=== PATIENT | female | born 1990 | race Caucasian/White ===

== ENCOUNTER 2016-07-11 06:08 | Inpatient (IN) | payer BC ==
--- OUTSIDE RECORDS SUMMARY | 2016-07-11 06:12 | XMS REPORT | Continuity of Care Document ---
:1990 Author Organization [facility] ([facility]) Address [address] [place] [address] Phone [phone] Care Team Providers Name Role Phone Hernando Cleaning Primary Care Provider [phone] Source Comments This disclosure is being made pursuant to the Care Everywhere program, applicable federal and state laws, and may not contain all informaitonavailable regarding this patient.[facility] ([facility]) Active Allergies and Adverse Reactions Allergen Noted Date Severity Reactions Comments Latex 02/07/2016 Rash Current Medications Not on file Active Problems Problem Noted Date 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 Renal cyst, left Hemorrhoids GERD (gastroesophageal reflux disease) Insomnia Asthma Murmur TMJ arthralgia Migraine headache Overview: 3-4 times per week Flat feet Chronic joint pain Joint laxity Mayur-Danlos syndrome Social History Tobacco Use Types Packs/Day Years Used Date Never Assessed Last Filed Vital Signs Vital Sign Reading Time Taken Blood Pressure 112/64 02/07/2016 11:57 AM CDT Pulse 105 02/07/2016 11:57 AM CDT Temperature 37 C (98.6 F) 02/07/2016 11:57 AM CDT Respiratory Rate - - Height 1.552 m (5' 1.1") 02/07/2016 11:57 AM CDT Weight 83.3 kg (183 lb 10.3 oz) 02/07/2016 11:57 AM CDT Body Mass Index 34.58 02/07/2016 11:57 AM CDT Oxygen Saturation - - Plan of Care Health Maintenance Due Date Last Done Comments Hepatitis B Vaccine (1 of 3 - Primary Series) 1990 HPV Vaccine (1 of 3 - Female/Unknown 3 Dose Series) 09/30/2003 Tdap Vaccine 09/30/2003 Cervical Cancer Screening 2010 Lipid Disorder Screening 2010 MMR Vaccine 2010 Td Vaccine 2010 Varicella Vaccine (1 of 2 - Adult - No Evidence of 2010 Immunity) Pneumococcal Vaccine (1 of 1 - PPSV23) 09/30/2011 Influenza Vaccine: Seasonal (#1) 11/07/2015 Results from Last 3 Months Not on file
[2016-07-11] MEDS ORDERED: ACETAMINOPHEN 500 MG TABLET PO PRN (06:17)
[2016-07-11] MEDS ORDERED: CALCIUM CARBONATE 500 MG TAB.CHEW PO PRN (06:17)
[2016-07-11] MEDS ORDERED: ALBUTEROL SULFATE 2.5 MG/0.5 ML VIAL.NEB IH PRN ×2 (06:17→16:49)
[2016-07-11] MEDS ORDERED: ALBUTEROL SULFATE 60 PUFF INHALER IH PRN (06:19)
[2016-07-11] MEDS ORDERED: LIDOCAINE HCL 50 ML VIAL PERI PRN (06:24)
[2016-07-11] MEDS ORDERED: OXYTOCIN/DEXTROSE 5%-WATER 30 UNITS/500 ML BAG IV ONE ×2 (06:24→16:48)
[2016-07-11] MEDS ORDERED: ONDANSETRON HCL/PF 2 MG/ML VIAL IV PRN (06:24)
[2016-07-11] MEDS ORDERED: PENICILLIN G POTASSIUM 5 MILLIONUNT in DEXTROSE 5 % IN WATER 100 ML IV ONE ×2 (06:30)
[2016-07-11] MEDS: DEXTROSE 5%-LACTATED RINGERS 1,000 ML IV PRN ×3 (06:37→15:54)
[2016-07-11] MEDS ORDERED: BUPIVACAINE HCL/0.9 % NACL/PF 250 ML EP PRN (07:27)
[2016-07-11] MEDS ORDERED: fentaNYL CITRATE/PF 50 MCG/ML AMPUL IT SCH (07:30)
--- NOTE | 2016-07-11 07:32 | OR ---
Anesthesia Pre Procedure Eval Date of Service: 07/11/16 Pre Procedure Evaluation: Last Vital Signs Temp 36.6 C 12/29/15 12:01 Pulse Resp BP 120/68 12/29/15 12:01 Pulse Ox Anesthesia Pre Procedure Evaluation Heart Rate:86 Blood Pressure:136/99 Termperature:36.5C Respiratory Rate:16 SaO2:99 DATE: 07/11/2016 TIME: 7:30 INDICATIONS: Active labor labor pain PAST MEDICAL HISTORY: Multipara patient in active labor requesting labor analgesia EXAM: Heart regular; lungs clear ASSESSMENT OF MEDICAL STATUS: Appropriate candidate for labor analgesia PLANNED PROCEDURE: Combination spinal epidural for labor analgesia Home Medications: HOME MEDICATIONS Acetaminophen [Tylenol] 1,000 mg PO Q6H PRN 06/28/16 [Last Taken 07/10/16] Calcium Carbonate [Tums] 500 mg PO TID PRN 06/28/16 [Last Taken 07/11/16] Vit#96/Ferrous Fum/FA [ S] 1 tab PO DAILY 06/28/16 [Last Taken Unknown] Albuterol Sulfate [Ventolin Hfa] 18 gm IH PRN PRN 07/11/16 [Last Taken 07/10/16]
--- NOTE | 2016-07-11 07:53 | OR ---
Anesthesia Procedure Note - Anesthesia Procedure Note Date of Service: 07/11/16 Narrative: Vital Signs - Last Taken Temp 36.6 C 12/29/15 12:01 Pulse Resp BP 120/68 12/29/15 12:01 Pulse Ox 07/11/16 07:51 ANESTHESIA PROCEDURE NOTE Date of Procedure: 07/11/2016 Time of procedure: 11 04. Performed by: LINDA Thrasher CRNA, MSN Tape Recorder Mechanic: Aretha Hess RN. Preprocedure diagnosis: Active labor, labor pain. Post procedure diagnosis: Same. Procedure: Labor Epidural Placement L3 4. Indications: Active labor, labor pain. Findings: See below. Details of the procedure: The patient was placed on the side of the bed in sitting position. The patient was prepped with DuraPrep and draped in a sterile fashion. Lidocaine 1% was infiltrated to the skin and subcutaneous tissues at the level of the L3 4 interspace. The epidural space was identified using a 18-gauge Tuohy needle with [id number] technique. Fentanyl 20 g was given intrathecally the intrathecal needle was then removed and the epidural catheter was threaded approximately 4 cm, the epidural needle was then removed, and after careful aspiration 3 mL of 1.5% lidocaine with 1-200,000 epinephrine was injected without change in maternal heart rate or sensorium. The catheter was then taped in place. EBL: Minimal. Fluids: N/A. Specimen: N/A. Post procedure condition: The patient tolerated the procedure well with good relief. No complications were noted. Thank you for this consultation. Pablo Phan CRNA, MARKET RISK ANALYST, MSN
[2016-07-11] MEDS ORDERED: RINGERS SOLUTION,LACTATED 1,000 ML IV ONE (08:00)
[2016-07-11] MEDS ORDERED: PRENATAL VIT#96/FERROUS FUM/FA 1 TAB TABLET PO SCH (09:00)
[2016-07-11] MEDS: PENICILLIN G POTASSIUM 2.5 MILLIONUNT in DEXTROSE 5 % IN WATER 100 ML IV SCH ×4 (09:53→13:52)
--- NOTE | 2016-07-11 14:11 | PN ---
Progess Note - Interim Narrative: 07/11/16 14:08 Patient comfortable with epidural Vital signs stable. Pitocin at 18 mu/min. Status post 2 doses of penicillin for GBS prophylaxis. FHT:150 baseline, reassuring Contractions q 2-3 min Cervix: And 5/60/-3, AROM-clear at 1330 Impression: Intrauterine at 39 6/7 weeks elective induction of labor for term with favorable cervix Plan: Continue present plan 07/11/16 14:10
[2016-07-11] MEDS ORDERED: ACETAMINOPHEN 500 MG TABLET PO ONE (14:57)
[2016-07-11] MEDS ORDERED: oxyCODONE HCL/ACETAMINOPHEN 1 TAB TABLET PO PRN (16:48)
[2016-07-11] MEDS ORDERED: HYDROCORTISONE 30 APPL TUBE TP PRN (16:48)
[2016-07-11] MEDS ORDERED: SENNOSIDES 8.6 MG TABLET PO PRN (16:48)
[2016-07-11] MEDS ORDERED: BISACODYL 10 MG SUPP.RECT RC PRN (16:48)
[2016-07-11] MEDS ORDERED: BENZOCAINE/MENTHOL 81 SPRAY CAN TP PRN (16:48)
[2016-07-11] MEDS ORDERED: GLYCERIN/WITCH HAZEL LEAF 40 APPL BOX TP PRN (16:48)
--- NOTE | 2016-07-11 16:56 | OR ---
Operative Report - Dictated Report Narrative: Spontaneous vaginal delivery of viable male at 1632 on 07/11/2016 in YOLANDA position with Apgars 8 and 9, weighing 3500 g. Nuchal cord 1-tight, reduced on perineum. Cord clamping delayed approximately 1 minute Placenta delivered complete, intact, with three vessel cord Estimated blood loss: less than 50 ml Lacerations: None History for MU Definition: * The number of deliveries resulting in a live the patient experienced prior to current hospitalization * The previous delivery of live twins or any live multiple gestation is considered one live event. *If primagravida or nulliparous is documented select zero for the number of previous live births. Live Events: 1
[2016-07-11] MEDS: IBUPROFEN 800 MG TABLET PO PRN (18:50)
[2016-07-11] MEDS: DOCUSATE SODIUM 100 MG CAPSULE PO SCH (20:30)
[2016-07-11] MEDS: oxyCODONE HCL/ACETAMINOPHEN 1 TAB TABLET PO PRN (21:36)
[2016-07-12] MEDS: oxyCODONE HCL/ACETAMINOPHEN 1 TAB TABLET PO PRN ×6 (01:14→21:29)
[2016-07-12] MEDS: IBUPROFEN 800 MG TABLET PO PRN ×3 (03:56→18:12)
--- NOTE | 2016-07-12 08:48 | PN ---
Subjective - Date and Time Seen Date: 07/12/16 Time: 08:47 Objective - Vitals Vitals: Last Vital Signs Temp 36.9 C 07/12/16 06:55 Pulse 80 07/12/16 06:55 Resp 16 07/12/16 06:55 BP 117/63 07/12/16 06:55 Pulse Ox 98 07/12/16 06:55 Patient denies complaints. Lochia wnl Abdomen - soft, nontender Uterus - firm, at umbilicus - 1 No calf tenderness Impression: day #1 - s/p spontaneous vaginal delivery. Plan: Continue routine care Cauti Physician Documentation - Urinary Catheter Management Uretheral ([place]) Date of Insertion: 07/11/16 Time of Insertion: 09:10 Date of Removal: 07/11/16 Time of Removal: 16:25
[2016-07-12] MEDS: DOCUSATE SODIUM 100 MG CAPSULE PO SCH ×2 (10:02→21:27)
[2016-07-13] MEDS: IBUPROFEN 800 MG TABLET PO PRN (06:55)
--- NOTE | 2016-07-13 08:26 | PN ---
Subjective - Date and Time Seen Date: 07/13/16 Time: 08:25 Objective - Vitals Vitals: Last Vital Signs Temp 36.4 C L 07/12/16 19:55 Pulse 68 07/13/16 02:14 Resp 16 07/13/16 02:14 BP 121/63 07/13/16 02:14 Pulse Ox 99 07/13/16 02:14 Patient denies complaints. Lochia wnl Abdomen - soft, nontender Uterus - firm, at umbilicus - 2 No calf tenderness Impression: day #2 - s/p spontaneous vaginal delivery. Ehler Danlos syndrome-stable. Asthma-stable. Plan: Routine discharge instructions Cauti Physician Documentation - Urinary Catheter Management Uretheral ([place]) Date of Insertion: 07/11/16 Time of Insertion: 09:10 Date of Removal: 07/11/16 Time of Removal: 16:25
[2016-07-13] MEDS ORDERED: NALOXONE HCL 1 MG/1 ML SYRG IV PRN (09:02)
[2016-07-13] MEDS ORDERED: ONDANSETRON HCL/PF 2 MG/ML VIAL IV PRN (09:02)
[2016-07-13] MEDS ORDERED: BUPIVACAINE HCL/0.9 % NACL/PF 250 ML EP PRN (09:02)
[2016-07-13] MEDS ORDERED: BUPIVACAINE HCL/PF 30 ML VIAL EP ONE (09:02)
[2016-07-13 10:07] VITALS: BP 132/76
== END 2016-07-13 12:45 | disposition home or self-care (01) | DRG 775 ==
LOC: OB 06:08
PROVIDERS: ADMIT Obstetrics & Gynecology; ATTEND Obstetrics & Gynecology
PROC: 10E0XZZ Delivery of Products of Conception, External Approach (ICD-10-PCS; principal; 2016-07-11)
PROC: 10907ZC Drainage of Amniotic Fluid, Therapeutic from Products of Conception, Via Natural or Artificial Opening (ICD-10-PCS; 2016-07-11)
PROC: 4A1HXCZ Monitoring of Products of Conception, Cardiac Rate, External Approach (ICD-10-PCS; 2016-07-11)
PROC: 3E0S3CZ (ICD-10-PCS; 2016-07-11)
DX: O69.1XX0 Labor and delivery complicated by cord around neck, with compression, not applicable or unspecified (principal); Q79.6 Ehlers-Danlos syndromes; O99.824 Streptococcus B carrier state complicating childbirth; Z3A.40 40 weeks gestation of pregnancy; Z37.0 Single live birth

== ENCOUNTER 2016-11-11 23:49 | Emergency (ER) | payer BC ==
[2016-11-12 00:26] LABS: Hematocrit 36.8 % (37.0-47.0); Hemoglobin 12.7 gm/dL (12.5-16.0); Mean Cell Volume 77.1 fl (78-100); Mean Corpuscular Hemoglobin 26.6 pg (27-31); Mean Corpuscular Hgb Conc 34.5 g/dl (32-36); Mean Platelet Volume 9.8 fl (6.0-9.5); Neutrophil # 2.9 K/mm3 (1.3-6.0); Neutrophil % 65.3 % (42-75.0); Platelet Count 196 K/mm3 (150-450); Red Blood Count 4.77 M/mm3 (4.2-5.4); Red Cell Distribution Width 14.2 % (11.5-14.0); White Blood Count 4.4 K/mm3 (4.0-10.5)
[2016-11-12 00:31] LABS: Urine Bilirubin Negative (NEGATIVE); Urine Ketone Negative (NEGATIVE); Urine Nitrite Negative (NEGATIVE); Urine Protein Negative (NEGATIVE); Urine Specific Gravity >=1.030 SP.GR. (1.005-1.010); Urine Urobilinogen Normal (NORMAL)
[2016-11-12 00:38] LABS: Urine Appearance Clear; Urine Bacteria 2+; Urine Blood 5 /ul (NEGATIVE); Urine Color Dark Yellow; Urine Mucus Few - 1+; Urine RBC 0-5 /hpf (0-5); Urine WBC 0-5 /hpf (0-5)
[2016-11-12 00:40] LABS: Albumin * 3.8 gm/dl (3.4-5.0); Anion Gap 13.8 mmol/L (6.8-13.8); Bilirubin, Total 0.5 mg/dL (0.0-1.1); Ca. Corrected For Albumin 8.5 mg/dL (8.4-10.2); Calcium * 8.7 mg/dL (7.9-10.9); Carbon Dioxide 26.5 mmol/L (24-32.6); Potassium 3.3 mmol/L (3.4-4.6); Total Protein 7.2 gm/dL (6.2-8.2)
--- NOTE | 2016-11-12 01:35 | ERNOTE ---
Abdominal HPI - General Chief Complaint: Abdominal Pain Time Seen by Provider: 11/12/16 01:23 Source: patient Exam Limitations: no limitations - Immun/Allergies/Home Medications Immunizatons: IMMUNIZATION HX Immunizations Up to Date Yes Allergies/Adverse Reactions: Allergies naproxen sodium [From Aleve] Allergy (Severe, Verified 11/12/16 00:05) Swelling of Tongue latex Allergy (Intermediate, Verified 11/12/16 00:05) Home Medications: HOME MEDICATIONS Acetaminophen [Tylenol] 1,000 mg PO Q6H PRN 06/28/16 [Last Taken 07/10/16] Calcium Carbonate [Tums] 500 mg PO TID PRN 06/28/16 [Last Taken 07/11/16] Vit#96/Ferrous Fum/FA [ S] 1 tab PO DAILY 06/28/16 [Last Taken Unknown] Albuterol Sulfate [Ventolin Hfa] 18 gm IH PRN PRN 07/11/16 [Last Taken 07/10/16] Ibuprofen [Motrin] 200 - 800 mg PO Q6H PRN #100 tab 07/13/16 [Last Taken Unknown ] - History of Present Illness Narrative: Pt had onset of RUQ abdominal pain this am when she woke up. Waxing and waning with constant ache. Has radiation to her back. Timing: getting worse Quality: moderate, severe, burning, cramping Activities at Onset: none Associated Symptoms: Present: diaphoresis, nausea Review of Systems - Review of Systems Constitutional: Absent: recent illness EYE: Present: no symptoms reported ENT: Present: no symptoms reported Respiratory: Present: other - no pain with deep breath. Absent: shortness of breath, cough Cardiology: Absent: chest pain Gastrointestinal/Abdominal: Present: See HPI Genitourinary: Present: other - difficulty urinating Musculoskeletal: Present: back pain Skin: Present: no symptoms reported Neurological: Present: no symptoms reported Endocrine: Present: no symptoms reported Hematologic/Lymphatic: Present: no symptoms reported Psych: Present: no symptoms reported - Patient's Past Medical History Patient History - Medical: Anemia, ADHD Patient History - Cardiac/Respiratory: Asthma Patient History - Cancer: No Hx of Cancer Patient History - Surgical Procedures: T & A Patient History - Other: None LMP (females 10-50): other - Family History Mother Family History - Medical: Other Family History - Cardiac/Respiratory: Hyperlipidemia - Social History Living Situations: home Abuse History: No History of abuse Psych History: Hx of Anxiety Smoking Status: Never smoker Alcohol Use: none Drug Use: none - Immunizations Immunizations Up to Date: Yes Physical Exam - Physical Exam General Appearance: Present: wd/wn, alert, no apparent distress Head Exam: Present: normal inspection, no evidence of injury Eye Exam: Normal inspection: bilateral Neck: Present: normal inspection, full range of motion Respiratory: Present: no respiratory distress, no accessory muscle use Gastrointestinal/Abdominal: Present: normal bowel sounds, tenderness - RUQ which causes some discomfort in the LUQ when pushing in the RUQ.. Absent: guarding, rebound Back Exam: Present: normal inspection, no CVA tenderness Extremity Exam: Present: normal inspection, non-tender, no edema Neurological Exam: Present: alert, oriented, normal mood/affect Skin Exam: Present: normal color, warm/dry Lymphatic Exam: Present: no adenopathy ED Progress - Results and Orders Patient's Lab Results:: I have reviewed the patient's lab results. Results and Orders: Laboratory Tests 11/12/16 11/12/16 11/12/16 00:24 00:24 00:24 WBC 4.4 Hgb 12.7 Hct 36.8 L Plt Count 196 Sodium 141 Potassium 3.3 L Chloride 104 BUN 9 Creatinine 0.90 Random Glucose 110 Calcium 8.7 Total Bilirubin 0.5 AST 20 ALT 57 Alkaline Phosphatase 124 Total Protein 7.2 Albumin 3.8 Amylase 25 Lipase 73 Serum HCG, Qual Urine Color Dark yellow Urine Appearance Clear Urine pH 6.0 Ur Specific [place] >=1.030 Urine Protein Negative Urine Glucose (UA) Negative Urine Ketones Negative Urine Blood 5 H Urine Nitrate Negative Urine Bilirubin Negative Urine Urobilinogen Normal Ur Leukocyte Esterase Negative Urine RBC 0-5 Urine WBC 0-5 Ur Epithelial Cells 10-25 H Urine Bacteria 2+ H Urine Mucus Few - 1+ H Urine Culture Comments No culture indicated 11/12/16 00:24 WBC Hgb Hct Plt Count Sodium Potassium Chloride BUN Creatinine Random Glucose Calcium Total Bilirubin AST ALT Alkaline Phosphatase Total Protein Albumin Amylase Lipase Serum HCG, Qual Negative Urine Color Urine Appearance Urine pH Ur Specific [place] Urine Protein Urine Glucose (UA) Urine Ketones Urine Blood Urine Nitrate Urine Bilirubin Urine Urobilinogen Ur Leukocyte Esterase Urine RBC Urine WBC Ur Epithelial Cells Urine Bacteria Urine Mucus Urine Culture Comments - Vital Signs Patient's Vital Signs:: I have reviewed the patient's vital signs. Vital Signs: Vital Signs 11/11/16 23:59 Temperature 37.6 C H Pulse Rate 95 Respiratory 20 Rate Blood Pressure 100/68 O2 Sat by Pulse 98 Oximetry - X-Ray X-Ray #1 X-Ray: abdomen Interpretation: Interp. by me X-ray Comments: Retained stool in the upper ascending, transverse and descending colon. No dilation or evidence of obstruction. No mass - Progress/Reassessment Chief Complaint: Abdominal Pain Progress:: Unchanged Progress Note-Subjective: 11/12/16 02:35 Discussed constipation with the patient and family. discussed hematuria and pt states that she has had a CT scan that showed one kidney was very cystic. I suggested further discussion with her PCP and possibly further workup or at least continued monitoring of her polycystic kidney. Pt and family expressed understanding. Departure - Departure Clinical Impression: Constipation Qualifiers: Constipation type: slow transit constipation Qualified Code(s): K59.01 - Slow transit constipation Hematuria Qualifiers: Hematuria type: asymptomatic microscopic Qualified Code(s): R31.21 - Asymptomatic microscopic hematuria Disposition: Home self-care Condition: Good Instructions: Constipation, Adult, [id number] Additional Instructions: discuss further work up for the blood in your urine with your primary care doctor. Take over the counter laxative tonight and then increase your fiber and water intake Referrals: Mohamud Can MD [Primary Care Provider] -
--- OUTSIDE RECORDS SUMMARY | 2016-11-12 01:47 | XMS REPORT | Summary of Care ---
:1990 Author Organization [facility] Address [address] [place] [address] Care Team Providers Name Role Phone Physician, Primary Care Primary Care Physician Unavailable Encounter Date(s): 09/06/16 - 09/06/16 [facility] [address], [address] [place], [place] [address] Discharge Diagnosis: Low back pain Discharge Diagnosis: Neck pain Discharge Disposition: 01 Discharged to Home or Self Care Attending Physician: Pete Sheht MD Referring Physician: Nikos Azevedo MD Vital Signs Most recent to oldest [Reference Range]: 1 Peripheral Pulse Rate [60-100 bpm] 83 bpm (09/06/16 11:21 AM) Blood Pressure [90-130/60-90 mmHg] 129/82mmHg (09/06/16 11:21 AM) Mean Arterial Pressure, Cuff 98 mmHg (09/06/16 11:21 AM) Most recent to oldest [Reference Range]: 1 Height/Length Measured 157 cm (09/06/16 11:21 AM) Weight Dosing 82.90 kg1 (09/06/16 11:29 AM) Weight Measured 82.9 kg (09/06/16 11:21 AM) BSA Measured 1.84 m2 (09/06/16 11:21 AM) Body Mass Index Measured 33.63 kg/m2 (09/06/16 11:21 AM) 1Result Comment: This result was because the dosing weight was either not entered or it is>30 days old. This result is based off: Weight Measured September 06, 2016 11:21:00 CDT by Elodia Belle, Oil Tank Car Cleaner Problem List Condition Effective Dates Status Health Status Informant ADD - Attention deficit Active disorder(Confirmed) Numbness and tingling sensation of Active skin(Confirmed) Allergies, Adverse Reactions, Alerts Substance Reaction Severity Status Aleve Active Latex Active Medications busPIRone 15 mg oral tablet 1 tab(s), Oral, BID, Start with 2/3 tablet (10mg) BID x 1 week, # 60 tab(s), 2 Refill(s), Start Date: 03/12/14 14:24:00 BOBBIN SORTER, Pharmacy: [id number] Special Instructions: Start with 2/3 tablet (10mg) BID x 1 week Start Date: 03/12/14 Stop Date: 07/09/14 Status: Discontinueddocusate sodium 0 Refill(s) Start Date: 01/18/14 Stop Date: 01/09/16 Status: CompletedPrenatal Multivitamins Oral, Daily, 0 Refill(s) Start Date: 01/18/14 Status: OrderedTylenol Oral, 0 Refill(s) Start Date: 01/18/14 Status: Ordered Results No data available for this section Immunizations Vaccine Date Refusal Reason influenza virus vaccine, inactivated1 01/18/14 1Result Comment: Pt tolerated well. Procedures Procedure Date Related Diagnosis Body Site Tonsillectomy and adenoidectomy 12/17/12 Oral procedure Procedure1 1Lateral bilateral arthroscropy and patellar release Social History No data available for this section Assessment and Plan No data available for this section
--- OUTSIDE RECORDS SUMMARY | 2016-11-12 01:47 | XMS REPORT | Summary of Care ---
:1990 Author Organization [facility] Care Team Providers Name Role Phone Physician, Primary Care Primary Care Physician Unavailable Encounter Date(s): 09/14/16 - 09/14/16 [id number] [place], [place] [address] Discharge Disposition: Discharged to Home or Self Care Attending Physician: Nikos Azevedo MD Admitting Physician: Nikos Azevedo MD Vital Signs No data available for this section Problem List Condition Effective Dates Status Health Status Informant ADD - Attention deficit Active disorder(Confirmed) Numbness and tingling sensation of Active skin(Confirmed) Allergies, Adverse Reactions, Alerts Substance Reaction Severity Status Aleve Active Latex Active Medications busPIRone 15 mg oral tablet 1 tab(s), Oral, BID, Start with 2/3 tablet (10mg) BID x 1 week, # 60 tab(s), 2 Refill(s), Start Date: 03/12/14 14:24:00 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
--- OUTSIDE RECORDS SUMMARY | 2016-11-12 01:48 | XMS REPORT | Summary of Care ---
:1990 Author Organization [facility] Address [address] [place] [address] Care Team Providers Name Role Phone Physician, Primary Care Primary Care Physician Unavailable Encounter Date(s): 09/26/16 - 09/26/16 [facility] [address], [address] [place], [place] [address] Discharge Diagnosis: Bilateral plantar fasciitis Discharge Disposition: 01 Discharged to Home or Self Care Attending Physician: Suzan Brenner DPM Referring Physician: Suzan Brenner DPM Vital Signs Most recent to oldest [Reference Range]: 1 Peripheral Pulse Rate [60-100 bpm] 105 bpm *HI* (09/26/16 9:13 AM) Blood Pressure [90-130/60-90 mmHg] 99/67mmHg (09/26/16 9:13 AM) Mean Arterial Pressure, Cuff 78 mmHg (09/26/16 9:13 AM) Most recent to oldest [Reference Range]: 1 Height/Length Measured 157 cm (09/26/16 9:13 AM) Weight Dosing 83.91 kg1 (09/26/16 9:25 AM) Weight Measured 83.91 kg (09/26/16 9:13 AM) BSA Measured 1.85 m2 (09/26/16 9:13 AM) Body Mass Index Measured 34.04 kg/m2 (09/26/16 9:13 AM) 1Result Comment: This result was because the dosing weight was either not entered or it is>30 days old. 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, Pharmacy: [facility] Special Instructions: Start with 2/3 tablet (10mg) BID x 1 week Start Date: 03/12/14 Stop Date: 07/09/14 Status: Discontinueddiclofenac sodium 75 mg oral delayed release tablet 1 tab(s), Oral, BID, # 60 tab(s), 0 Refill(s), Start Date: 09/21/16 13:25:00 CDT , Pharmacy: [facility] [place] [id number] Start Date: 09/21/16 Status: Ordereddocusate sodium 0 Refill(s) Start Date: 01/18/14 Stop Date: 01/09/16 Status: Completedmeloxicam 15 mg oral tablet 1 tab(s), Oral, Daily, # 30 tab(s), 1 Refill(s), Start Date: 09/11/16 8:27:00 CDT, Pharmacy: [facility] Start Date: 09/11/16 Stop Date: 09/26/16 Status: DiscontinuedPrenatal Multivitamins 1 tab, Oral, Daily, 0 Refill(s), Start Date: 01/18/14 13:02:00 CDT Start Date: 01/18/14 Status: OrderedTylenol 325 mg, Oral, Daily, 0 Refill(s), Start Date: 01/18/14 13:02:00 CDT Start Date: 01/18/14 Status: Ordered Results No [...]
--- OUTSIDE RECORDS SUMMARY | 2016-11-12 01:48 | XMS REPORT | Summary of Care ---
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: [facility] Special Instructions: Start with 2/3 tablet (10mg) BID x 1 week Start Date: 03/12/14 Stop Date: 07/09/14 Status: Discontinueddiclofenac sodium 75 mg oral delayed release tablet 1 tab(s), Oral, BID, # 60 tab(s), 0 Refill(s), Start Date: 09/21/16 13:25:00 CDT , Pharmacy: [facility] Start Date: 09/21/16 Status: Ordereddocusate sodium 0 Refill(s) Start Date: 01/18/14 Stop Date: 01/09/16 Status: Completedmeloxicam 15 mg oral tablet 1 tab(s), Oral, Daily, # 30 tab(s), 1 Refill(s), Start Date: 09/11/16 8:27:00 CDT, Pharmacy: [id number] Start Date: 09/11/16 Stop Date: 09/26/16 Status: [...]
[2016-11-12 02:52] VITALS: BP 124/74
== END 2016-11-12 02:51 | disposition home or self-care (01) ==
LOC: ER 23:49
DX: K59.01 Slow transit constipation (principal); R31.21 Asymptomatic microscopic hematuria; D64.9 Anemia, unspecified; F90.9 Attention-deficit hyperactivity disorder, unspecified type

== ENCOUNTER 2018-08-15 10:29 | Inpatient (IN) ==
[2018-08-15] MEDS ORDERED: PENICILLIN G POTASSIUM 5 MILLIONUNT in DEXTROSE 5 % IN WATER 100 ML IV ONE ×2 (14:17)
[2018-08-15] MEDS ORDERED: MISOPROSTOL 100 MCG TABLET VG PRN (14:17)
[2018-08-15] MEDS ORDERED: OXYTOCIN/DEXTROSE 5%-WATER 30 UNITS/500 ML BAG IV ONE (14:17)
[2018-08-15] MEDS ORDERED: DEXTROSE 5%-LACTATED RINGERS 1,000 ML IV PRN (14:17)
[2018-08-15] MEDS ORDERED: ONDANSETRON 4 MG TAB.RAPDIS PO PRN (14:17)
[2018-08-15] MEDS ORDERED: RINGER'S SOLUTION,LACTATED 1,000 ML IV ONE (14:17)
[2018-08-15] MEDS ORDERED: BUPIVACAINE HCL/0.9 % NACL/PF 250 ML EP PRN (14:57)
[2018-08-15] MEDS ORDERED: NALOXONE HCL 1 MG/1 ML SYRG IV PRN (14:57)
[2018-08-15] MEDS ORDERED: ONDANSETRON HCL/PF 2 MG/ML VIAL IV PRN (14:57)
[2018-08-15] MEDS ORDERED: fentaNYL CITRATE/PF 50 MCG/ML AMPUL IT SCH (15:00)
[2018-08-15] MEDS ORDERED: LIDOCAINE HCL 50 ML VIAL ONE (15:56)
--- NOTE | 2018-08-15 16:14 | ANES ---
Anesthesia Pre Procedure Eval Vitals/Labs: Last Vital Signs Temp 37.5 C 08/15/18 14:40 Pulse 104 H 08/15/18 14:40 Resp 16 08/15/18 14:40 BP 115/60 08/15/18 14:40 Pulse Ox 99 08/15/18 14:40 HOME MEDICATIONS [id number]/Iron Fumarate/FA/Dss [ 19 Tablet] 1 ea PO DAILY 01/06/18 [Last Taken 08/02/18 09:00] acetaminophen 500 mg tablet 500 mg PO PRN PRN 01/07/18 [Last Taken Unknown] breast pump See Dose Instructions .ROUTE .MEDSUPPLY #1 ea 02/07/18 [Last Taken Unknown] Allergies/Adverse Reactions: Allergies Allergy/AdvReac Type Severity Reaction Status Date / Time naproxen sodium [From Aleve] Allergy Severe Swelling Verified 08/15/18 14:18 of Tongue, Hives latex Allergy Intermediate Hives Verified 08/15/18 14:18 - Planned Procedure Planned Procedure: ELECTIVE INDUCTION Medication List Reviewed:: Yes Allergies Verified: Yes Medical History (Updated 05/27/18 @ 17:01 by Andie Rock RN) Hx of migraines (Chronic) no meds Asthma (Chronic) INH PRN Anxiety (Chronic) no meds Mayur-Danlos syndrome (Chronic) Normal transthoracic ECHO in 2015 ADD (attention deficit disorder) Onset Date: ~2009 Tx'd w/Haim. Stopped medication with + UPT 2013. Allergy to Chestnuts Tongue itches & yoo; hives Allergy to avocado Tongue itches and yoo; hives Allergy to banana Tongue itches & yoo; hives Anxiety Onset Date: ~03/2014-Induced by progesterone per psychiatrist & 05/12/14. Asthma Onset Date: ~2007 Exercise induced. Currently has an inhaler as of 04/22/14. No hospitalizations. Body piercing Mayur-Danlos syndrome Mastodynia Onset Date: 01/13/13 Migraine Mild intermittent asthma without complication Onset Date: 12/01/15 Muscle spasm with numbness and tingling nowhere generalized Ovarian cyst Onset Date: ~2012 [place] Allergy Itching, burning, hives Tattoos Wears dentures Wears glasses Hemorrhoids Onset Date: ~2014 Anemia Onset Date: 06/07/14 2015 & 2017 w/pregnancies [place] teeth extracted Onset Date: ~07/2015 Surgical History (Updated 05/05/18 @ 21:25 by Celia Coelho MD) H/O arthroscopy of knee Onset Date: 08/04/15 Bilateral lateral arthroscopy with patellar release History of adenoidectomy Onset Date: 12/17/12 History of cholecystectomy Onset Date: 01/21/17 History of tonsillectomy Onset Date: 12/17/12 Family History (Updated 01/07/18 @ 10:56 by Marisa Krishnan RN) Sister Asthma Mayur-Danlos syndrome Aunt Colon cancer Aunt Multiple sclerosis Grandmother CHF (congestive heart failure) Diabetes Hypertension TIA (transient ischemic attack) Grandmother Diabetes Sister Vitamin B12 deficiency Mother Fatty liver Mayur-Danlos syndrome Grandfather Black lung Family/Other Mayur-Danlos syndrome - Family Anesthesia History Family History:: no untoward family reactions to anesthesia - Airway/Neck/Teeth Within Normal Limits:: Yes Teeth Condition: intact Neck Exam: full range of motion Mallampatti Score: 2 Thyromental (T-M) distance: > 6 cm Mandibulo Hyoid distance: > 3 cm - Respiratory Smoking Status: Never smoker Sleep Apnea currently treated: No Sleep Apnea by current assessment: No - Cardiovascular Tolerate Activity: Good - Anesthesia Assessment and Plan ASA Class: PS, II, E Anesthesia Type Plan: Epidural Planned difficult intubation/equipment available: No
--- NOTE | 2018-08-15 16:15 | ANES ---
Post Anesthesia Discharge - Transfer of Care Transfer of Care handoff given to nurse: Yes - Anesthesia Post Op Note Anesthesia Post Op Note: Care transferred to OB RN
--- NOTE | 2018-08-15 16:15 | ANES ---
Post Anesthesia Assessment - Vital Signs Vitals: Last Vital Signs Temp 37.5 C 08/15/18 14:40 Pulse 104 H 08/15/18 14:40 Resp 16 08/15/18 14:40 BP 115/60 08/15/18 14:40 Pulse Ox 99 08/15/18 14:40 Airway Patency: Normal - Mental Status Level Of Consciousness: Awake - Pain Level Pain Score: 2 - N/V Assessment Nausea/Vomiting Presence: None Dehydration:: No
--- NOTE | 2018-08-15 16:17 | ANES ---
Anesthesia Procedure Note Procedure Note: ANESTHESIA PROCEDURE NOTE Date of Procedure: 08/15/2018 Time of procedure: 1600. Performed by: Mau Perez CRNA [employer] Mechanical Design Engineer: None. Preprocedure diagnosis: Active labor. Post procedure diagnosis: Same. Procedure: Insertion of labor epidural. Indications: The patient is a 27-year-old multigravida female in active labor requesting labor epidural for pain management. Findings: See below. Details of the procedure: The patient was placed in a sitting position. Back was prepped with DuraPrep. Patient was then draped in a sterile fashion. Lidocaine 1% was infiltrated to the skin and subcutaneous tissues at the level of the L3 4 interspace. The epidural space was identified using a 18-gauge Tuohy needle with [id number] technique. 20 mcg fentanyl was given intrathecally using a 27 ga. spinal needle. Epidural catheter was inserted without difficulty. Negative test dose was elicited using 3 mL of 2% preservative-free lidocaine plus epinephrine 1 200,000. The epidural catheter was then taped and secured in place. EBL: Minimal. Fluids: N/A. Specimen: N/A. Post procedure condition: The patient tolerated the procedure well. No complications were noted. Thank you for this consultation. Davila CRNA
[2018-08-15] MEDS: PENICILLIN G POTASSIUM 2.5 MILLIONUNT in DEXTROSE 5 % IN WATER 100 ML IV SCH ×4 (18:43→22:32)
[2018-08-15 18:55] LABS: Cocaine Ur Negative (NEGATIVE); Urine Barbiturate Negative (NEGATIVE); Urine Benzodiazepines Negative (NEGATIVE); Urine Opiates Negative (NEGATIVE); Urine PCP Negative (NEGATIVE); Urine THC Negative (NEGATIVE)
--- NOTE | 2018-08-15 23:07 | HP ---
Chief Complaint - Chief Complaint Date of Service: 08/15/18 Time of Service: 22:54 Chief Complaint: elective induction of labor History of Present Illness: 27 yo at 39 weeks presents to L&D for elective induction of labor. This complicated by anemia, asthma, Ehler-Danlos syndrome, obesity, and anxiety. Rh positive Rubella immune GBS positive Medical History (Updated 05/27/18 @ 17:01 by Andie Rock RN) Hx of migraines (Chronic) no meds Asthma (Chronic) INH PRN Anxiety (Chronic) no meds Mayur-Danlos syndrome (Chronic) Normal transthoracic ECHO in 2015 ADD (attention deficit disorder) Onset Date: ~2009 Tx'd w/Vyvanse. Stopped medication with + UPT 2013. Allergy to Chestnuts Tongue itches & yoo; hives Allergy to avocado Tongue itches and yoo; hives Allergy to banana Tongue itches & yoo; hives Anxiety Onset Date: ~03/2014-Induced by progesterone per psychiatrist & 05/12/14. Asthma Onset Date: ~2007 Exercise induced. Currently has an inhaler as of 04/22/14. No h ospitalizations. Body piercing Mayur-Danlos syndrome Mastodynia Onset Date: 01/13/13 Migraine Mild intermittent asthma without complication Onset Date: 12/01/15 Muscle spasm with numbness and tingling nowhere generalized Ovarian cyst Onset Date: ~2012 [place] Allergy Itching, burning, hives Tattoos Wears dentures Wears glasses Hemorrhoids Onset Date: ~2014 Anemia Onset Date: 06/07/142014 & 2017 w/pregnancies [place] teeth extracted Onset Date: ~07/2015 Surgical History: Surgical History (Updated 05/05/18 @ 21:25 by Celia Coelho MD) H/O arthroscopy of knee Onset Date: 08/04/15 Bilateral lateral arthroscopy with patellar release History of adenoidectomy Onset Date: 12/17/12 History of cholecystectomy Onset Date: 01/21/17 History of tonsillectomy Onset Date: 12/17/12 Family History: Family History (Updated 01/07/18 @ 10:56 by Marisa Krishnan RN) Sister Asthma Mayur-Danlos syndrome Aunt Colon cancer Aunt Multiple sclerosis Grandmother CHF (congestive heart failure) Diabetes Hypertension TIA (transient ischemic attack) Grandmother Diabetes Sister Vitamin B12 deficiency Mother Fatty liver Mayur-Danlos syndrome Grandfather Black lung Family/Other Mayur-Danlos syndrome Social History: Preferred Language Serbian Smoking Status Never smoker Abuse History No History of abuse Psych History Hx of Anxiety (Last Updated 08/13/18 @ 10:34 by Hernando Cleaning DO) No Social History Section defined Review Of Systems (GEN) - Review of Systems Generalized/Overall Review: Present: No Symptoms Reported EENTM: Present: No Symptoms Reported Respiratory: Present: No Symptoms Reported Cardiac: Present: No Symptoms Reported Abdominal: Present: No Symptoms Reported Genitourinary: Present: No Symptoms Reported Musculoskeletal: Present: No Symptoms Reported Neurological: Present: No Symptoms Reported Skin: Present: No Symptoms Reported Endocrine: Present: No Symptoms Reported Immunizations: IMMUNIZATION HX Immunizations Up to Date Yes History of Influenza Vaccine Yes Hx Pneumococcal Vaccination No Allergies/Adverse Reactions: Allergies Allergy/AdvReac Type Severity Reaction Status Date / Time naproxen sodium [From Aleve] Allergy Severe Swelling Verified 08/15/18 14:18 of Tongue, Hives latex Allergy Intermediate Hives Verified 08/15/18 14:18 Home Medications: HOME MEDICATIONS [id number]/Iron Fumarate/FA/Dss [ 19 Tablet] 1 ea PO DAILY 01/06/18 [Last Taken 08/02/18 09:00] acetaminophen 500 mg tablet 500 mg PO PRN PRN 01/07/18 [Last Taken Unknown] breast pump See Dose Instructions .ROUTE .MEDSUPPLY #1 ea 02/07/18 [Last Taken Unknown] Exam - Exam Vital Signs: Vital Signs - Last Taken Temp 37.5 C 08/15/18 14:40 Pulse 104 H 08/15/18 14:40 Resp 16 08/15/18 14:40 BP 115/60 08/15/18 14:40 Pulse Ox 99 08/15/18 14:40 Constitutional: Present: Alert, Oriented x3, Cooperative ENT Exam: Present: hearing grossly normal Breasts: Present: Exam deferred Respiratory: Present: lungs clear, no respiratory distress Cardiovascular/Chest: Present: regular rate, rhythm, no edema Abdomen: Present: soft, nontender, obese, firm - gravid /Rectal: Present: Other - cervix - 4/50/-2 Extremity: Present: no pedal edema, no calf tenderness Skin Exam: Present: normal color, warm/dry, no cyanosis Neurologic: Present: alert, normal mood/affect, oriented x 3 Appearance: Present: appropriate appearance, appropriate insight Eye contact: Present: cooperative, good eye contact, normal speech Thoughts: Present: normal thought pattern Diagnostic Studies: Laboratory Results Negative (NEGATIVE) 08/15/18 18:28 Negative (NEGATIVE) 08/15/18 18:28 Ur Phencyclidine Scrn Negative (NEGATIVE) 08/15/18 18:28 Urine Amphetamine Negative (NEGATIVE) 08/15/18 18:28 U Benzodiazepines Scrn Negative (NEGATIVE) 08/15/18 18:28 Negative (NEGATIVE) 08/15/18 18:28 Negative (NEGATIVE) 08/15/18 18:28 NST reactive Assessment/Plan - Assessment/Plan (1) Encounter for induction of labor Assessment: Admit for pitocin induction of labor. IV antibiotics for GBS prophylaxis. Epidural PRN Problem: Acute (2) Anemia affecting , antepartum Problem: Chronic (3) Asthma Problem: Chronic Qualifiers: Asthma severity: mild Asthma persistence: intermittent Asthma complication type: uncomplicated Qualified Code(s): J45.20 - Mild intermittent asthma, uncomplicated (4) Anxiety Problem: Chronic (5) Mayur-Danlos syndrome Problem: Chronic (6) GBS carrier Problem: Acute
--- NOTE | 2018-08-15 23:09 | PN ---
Progess Note - Interim Date: 08/15/18 Time: 23:06 Narrative: 08/15/18 23:06 Patient comfortable with epidural Vitals stable FHT reassuring Ctxs q 2-3 min Cvx 8/75/-2, AROM - clear IMP: 39 wk IUP, induction of labor, GBS carrier Plan: Continue current plan, anticipate delivery within next 2 hours. Continue IV PCN till delivered.
[2018-08-16] MEDS ORDERED: BENZOCAINE/MENTHOL 81 SPRAY CAN TP PRN (01:58)
[2018-08-16] MEDS ORDERED: BISACODYL 10 MG SUPP.RECT RC PRN (01:58)
[2018-08-16] MEDS ORDERED: SENNOSIDES 8.6 MG TABLET PO PRN (01:58)
[2018-08-16] MEDS ORDERED: GLYCERIN/WITCH HAZEL LEAF 40 APPL BOX TP PRN (01:58)
[2018-08-16] MEDS ORDERED: oxyCODONE HCL/ACETAMINOPHEN 1 TAB TABLET PO PRN (01:58)
[2018-08-16] MEDS ORDERED: OXYTOCIN/DEXTROSE 5%-WATER 30 UNITS/500 ML BAG IV ONE (01:58)
[2018-08-16] MEDS ORDERED: HYDROCORTISONE 30 APPL TUBE TP PRN (01:58)
[2018-08-16] MEDS ORDERED: BREAST PUMP SCH (02:00)
[2018-08-16] MEDS ORDERED: [UNRECOGNIZED DRUG - OTHER] SCH (02:00)
--- NOTE | 2018-08-16 02:04 | OR ---
Operative Report - Dictated Report Narrative: Spontaneous vaginal delivery of a viable female at 0131 on 08/16/2018 with Apgars 9 and 9, weighing 4173 g in YOLANDA position. vigorously crying within 30 seconds of . Cord clamping delayed approximately 1 minute Placenta delivered complete, intact, with three vessel cord Estimated blood loss: less than 50 ml Anesthesia: epidural Lacerations: None
--- NOTE | 2018-08-16 02:05 | PN ---
Progess Note - Interim Date: 08/16/18 Time: 02:04 History for MU Definition: * The number of deliveries resulting in a live the patient experienced prior to current hospitalization * The previous delivery of live twins or any live multiple gestation is considered one live event. *If primagravida or nulliparous is documented select zero for the number of previous live births. Live Events: 2
[2018-08-16] MEDS: IBUPROFEN 800 MG TABLET PO PRN ×3 (02:57→17:56)
[2018-08-16] MEDS: oxyCODONE HCL/ACETAMINOPHEN 1 TAB TABLET PO PRN ×5 (03:37→22:01)
[2018-08-16] MEDS: PRENATAL VITS96/IRON FUM/FOLIC 1 TAB TABLET PO SCH (08:37)
[2018-08-16] MEDS: DOCUSATE SODIUM 100 MG CAPSULE PO SCH ×2 (08:37→20:59)
[2018-08-17] MEDS: oxyCODONE HCL/ACETAMINOPHEN 1 TAB TABLET PO PRN ×5 (01:08→23:23)
[2018-08-17] MEDS: IBUPROFEN 800 MG TABLET PO PRN ×3 (01:09→20:36)
--- NOTE | 2018-08-17 09:19 | PN ---
Subjective - Date and Time Seen Date: 08/17/18 Time: 09:16 Objective - Vitals Vitals: Last Vital Signs Temp 36.0 C 08/17/18 01:00 Pulse 102 H 08/17/18 01:00 Resp 20 08/17/18 01:00 BP 108/60 08/17/18 01:00 Pulse Ox 96 08/17/18 01:00 Patient denies complaints. Lochia wnl Abdomen - soft, nontender Uterus - firm, at umbilicus - 1 No calf tenderness Impression: day #1 - s/p spontaneous vaginal delivery. Plan: Continue routine care Cauti Physician Documentation - Urinary Catheter Management Urethral ([place]) Date of Insertion: 08/15/18 Time of Insertion: 15:30 Assessment/Plan - Problems/Diagnosis (1) Encounter for induction of labor Problem: Acute (2) Anemia affecting , antepartum Problem: Chronic (3) Asthma Problem: Chronic Qualifiers: Asthma severity: mild Asthma persistence: intermittent Asthma complication type: uncomplicated Qualified Code(s): J45.20 - Mild intermittent asthma, uncomplicated (4) Anxiety Problem: Chronic (5) Mayur-Danlos syndrome Problem: Chronic (6) GBS carrier Problem: Acute
[2018-08-17] MEDS: DOCUSATE SODIUM 100 MG CAPSULE PO SCH ×2 (10:05→20:36)
[2018-08-17] MEDS: PRENATAL VITS96/IRON FUM/FOLIC 1 TAB TABLET PO SCH (10:05)
[2018-08-18] MEDS: IBUPROFEN 800 MG TABLET PO PRN (04:35)
[2018-08-18] MEDS: oxyCODONE HCL/ACETAMINOPHEN 1 TAB TABLET PO PRN (04:35)
[2018-08-18 07:27] VITALS: BP 107/56
--- NOTE | 2018-08-18 08:41 | PN ---
Subjective - Date and Time Seen Date: 08/18/18 Time: 08:40 Objective - Vitals Vitals: Last Vital Signs Temp 36.6 C 08/18/18 07:23 Pulse 99 08/18/18 07:23 Resp 18 08/18/18 07:23 BP 107/56 08/18/18 07:23 Pulse Ox 98 08/18/18 07:23 Patient denies complaints. Lochia wnl Abdomen - soft, nontender Uterus - firm, at umbilicus - 2 No calf tenderness Impression: day #2 - s/p spontaneous vaginal delivery. Plan: Routine discharge instructions Cauti Physician Documentation - Urinary Catheter Management Urethral ([place]) Date of Insertion: 08/15/18 Time of Insertion: 15:30 Assessment/Plan - Problems/Diagnosis (1) Encounter for induction of labor Problem: Acute (2) Anemia affecting , antepartum Problem: Chronic (3) Asthma Problem: Chronic Qualifiers: Asthma severity: mild Asthma persistence: intermittent Asthma complication type: uncomplicated Qualified Code(s): J45.20 - Mild intermittent asthma, uncomplicated (4) Anxiety Problem: Chronic (5) Mayur-Danlos syndrome Problem: Chronic (6) GBS carrier Problem: Acute
== END 2018-08-18 11:00 | disposition home or self-care (01) | DRG 806 ==
LOC: OB 13:59
PROVIDERS: ADMIT Obstetrics & Gynecology; ATTEND Obstetrics & Gynecology
CPT/HCPCS: 59025; 80307